=== PATIENT | female | born 1960 | race Caucasian/White ===

== ENCOUNTER → 2016-05-11 | Outpatient (CLI) | payer OTHER ==
[~2016-05-11] MED LIST: E-Z PAQUE 60% w/v SUSP 355ML BOTTLE As Ordered ONE; E-Z-GAS II EFFERVESCENT PACKET (SODIUM BICARB./CITRIC ACID/SIMETHICONE) As Ordered ONE; E-Z-HD 98% w/w 340GM SUSP BTL As Ordered ONE
--- NOTE | 2016-05-11 17:33 | REP ---
ESOPHAGRAM, AIR CONTRAST: The procedure was performed under the direct supervision of Dr. Quach. The images were reviewed with Dr. Quach. A single view PA chest x-ray is submitted as a budget director film. The superior mediastinal structures are midline. The heart size is within normal limits. The lungs are clear. Liquid barium and gas producing granules were given in the erect position as well as liquid barium in the prone oblique position in order to perform a double contrast esophagram examination. The oral and pharyngeal stages of deglutition are unremarkable. Esophageal transport is prompt and efficient and there is no esophagitis, stricture or mucosal ring. There is a sliding type hiatal hernia present. There is gastroesophageal reflux demonstrated to the level of the thoracic inlet. IMPRESSION: There is a sliding type hiatal hernia present. There is gastroesophageal reflux demonstrated to the level of the thoracic inlet. 45 seconds of fluoroscopy time was utilized for this procedure. Reviewed by CHASIDY Cristobal 05/12/2016 04:48 PEdited and Signed by Tristen Quach MD 05/12/2016 05:19 P
== END ==
LOC: M RAD 08:58
PROVIDERS: ATTEND Specialist
DX: K21.9 Gastro-esophageal reflux disease without esophagitis (principal); J04.0 Acute laryngitis

== ENCOUNTER 2016-10-26 12:05 | Outpatient (CLI) | payer OTHER ==
[~2016-10-26] VITALS: Ht 165.1 cm; Wt 112.9 kg
[~2016-10-26 12:05] MED LIST changes: -E-Z PAQUE 60% w/v SUSP 355ML BOTTLE As Ordered ONE; -E-Z-GAS II EFFERVESCENT PACKET (SODIUM BICARB./CITRIC ACID/SIMETHICONE) As Ordered ONE; -E-Z-HD 98% w/w 340GM SUSP BTL As Ordered ONE; +FLUC150T PO; +HUMI40KI2 SC; +OMEP40CA2 PO; +PENT500C PO
[2016-10-26] MEDS ORDERED: NS 1,000 ML IV ONE (12:30)
[2016-10-26] MEDS ORDERED: PROPOFOL 200 MG/20 ML VIAL As Ordered ONE ×2 (12:42→13:25)
[2016-10-26] MEDS ORDERED: LIDOCAINE 2% INJ 100 MG/5 ML SDV (FOR ANES.) As Ordered ONE (12:42)
--- NOTE | 2016-10-26 13:13 | ROOR ---
Patient Name: Miri Velasquez Procedure Date: 10/26/2016 12:57 PM Date of : 1960 Age: 56 Room: [facility] Gender: Female Note Status: Finalized Procedure: Upper Endoscopy + Biopsies Indications: Heartburn, Exclusion of Cee's esophagus Providers: Jefferson Barraza MD Referring MD: Simran Rosado MD Requesting Provider: Medicines: Monitored Anesthesia Care Complications: No immediate complications. Procedure: Pre-Anesthesia Assessment: - The heart rate, respiratory rate, oxygen saturations, blood pressure, adequacy of pulmonary ventilation, and response to care were monitored throughout the procedure. The Endoscope was introduced through the mouth, and advanced to the second part of duodenum. The upper GI endoscopy was accomplished without difficulty. The patient tolerated the procedure well. Findings: The Z-line was regular and was found 35 cm from the incisors. A small hiatal hernia was present. Biopsies were taken with a cold forceps for histology. No other significant abnormalities were identified in a careful examination of the stomach. The exam of the duodenum was otherwise normal. Impression: - Z-line regular, 35 cm from the incisors. - Small hiatal hernia. Biopsied. - The examination was otherwise normal. Recommendation: - Await pathology results. - Discharge patient to home. - Follow an antireflux regimen. - Continue present medications. - Await pathology results. - Telephone GI clinic for pathology results in 1 week. - Return to referring physician. - The findings and recommendations were discussed with the patient's family. Jefferson Barraza MD Jefferson Barraza MD 10/26/2016 1:13:25 PM This report has been signed electronically. Number of Addenda: 0 Note Initiated On: 10/26/2016 12:57 PM Estimated Blood Loss: Estimated blood loss: none.
--- NOTE | 2016-10-26 13:33 | ROOR ---
Patient Name: Miri Velasquez Procedure Date: 10/26/2016 12:58 PM Date of : 1960 Age: 56 Room: [facility] Gender: Female Note Status: Finalized Procedure: Total Colonoscopy to Cecum Indications: Follow-up of Crohn's disease of the small bowel Providers: Jefferson Barraza MD Referring MD: Simran Rosado MD Requesting Provider: Medicines: Monitored Anesthesia Care Complications: No immediate complications. Procedure: Pre-Anesthesia Assessment: - The heart rate, respiratory rate, oxygen saturations, blood pressure, adequacy of pulmonary ventilation, and response to care were monitored throughout the procedure. The Colonoscope was introduced through the anus and advanced to the cecum, identified by appendiceal orifice and ileocecal valve. The colonoscopy was performed without difficulty. The patient tolerated the procedure well. The quality of the bowel preparation was excellent. Findings: The perianal and digital rectal examinations were normal. Non-bleeding internal hemorrhoids were found during retroflexion. The hemorrhoids were small and Grade I (internal hemorrhoids that do not prolapse). No other significant abnormalities were identified in a careful examination of the remainder of the colon. The exam was otherwise without abnormality on direct and retroflexion views. Impression: - Non-bleeding internal hemorrhoids. - The examination was otherwise normal on direct and retroflexion views. - No specimens collected. - The exam was otherwise normal to the cecum. Recommendation: - Patient has a contact number available for emergencies. The signs and symptoms of potential delayed complications were discussed with the patient. Return to normal activities tomorrow. Written discharge instructions were provided to the patient. - High fiber diet. - Discharge patient to home. - Continue present medications. - Repeat colonoscopy in 10 years for screening purposes. - Return to referring physician. - The findings and recommendations were discussed with the patient's family. Jefferson Barraza MD Jefferson Barraza MD 10/26/2016 1:32:34 PM This report has been signed electronically. Number of Addenda: 0 Note Initiated On: 10/26/2016 12:58 PM Estimated Blood Loss: Estimated blood loss: none.
[2016-10-26 14:00] VITALS: BP 123/63
== END 2016-10-26 14:09 | disposition home or self-care (01) ==
LOC: M OPP 12:05
PROVIDERS: ATTEND Internal Medicine Gastroenterology
DX: K50.00 Crohn's disease of small intestine without complications (principal); K64.0 First degree hemorrhoids; Z88.0 Allergy status to penicillin; R12 Heartburn; K29.70 Gastritis, unspecified, without bleeding; K44.9 Diaphragmatic hernia without obstruction or gangrene; F41.9 Anxiety disorder, unspecified; Z87.891 Personal history of nicotine dependence; Z79.899 Other long term (current) drug therapy

== ENCOUNTER → 2019-08-06 | Outpatient (CLI) | payer OTHER ==
[~2019-08-06] MED LIST changes: -OMEP40CA2 PO; +OMEP40CA97 PO
[2019-08-06 16:36] LABS: BASO # 0.1 10^3/uL (0.0-0.2); BASO % 0.8 % (0.0-1.0); EOS # 0.4 10^3/uL (0.0-0.5); EOS % 3.8 % (0.0-3.0); HEMATOCRIT 38.8 % (36.0-47.0); HEMOGLOBIN 12.3 g/dl (12.0-15.5); LYMPH # 2.1 10^3/uL (1.5-5.0); LYMPH % 18.2 % (24.0-44.0); MEAN CORPUSCULAR HEMOGLOBIN 28.7 pg (27.0-33.0); MEAN CORPUSCULAR HGB CONC 31.7 g/dl (32.0-36.5); MEAN CORPUSCULAR VOLUME 90.4 fl (80.0-96.0); MONO # 0.9 10^3/uL (0.0-0.8); MONO % 7.6 % (0.0-5.0); NEUTROPHILS # 7.9 10^3/uL (1.5-8.5); NEUTROPHILS % 69.2 % (36.0-66.0); PLATELET COUNT, AUTOMATED 458 10^3/uL (150-450); RED BLOOD COUNT 4.29 10^6/uL (4.00-5.40); WHITE BLOOD COUNT 11.3 10^3/uL (4.0-10.0)
[2019-08-06 16:58] LABS: ALBUMIN 2.7 GM/DL (3.2-5.2); ALT/SGPT 18 U/L (12-78); BILIRUBIN,DIRECT 0.1 MG/DL (0.0-0.2); BILIRUBIN,TOTAL 0.3 MG/DL (0.2-1.0); BLOOD UREA NITROGEN 11 MG/DL (7-18); C REACTIVE PROTEIN QUANTITATIV 6.95 MG/DL (0.00-0.30); CREATININE FOR GFR 1.32 MG/DL (0.55-1.30); GLOMERULAR FILTRATION RATE 44.2 (>51); TOTAL PROTEIN 7.9 GM/DL (6.4-8.2)
[2019-08-06 17:24] LABS: ERYTHROCYTE SEDIMENTATION RATE 69 mm/hr (0-30)
[2019-08-07 09:00] LABS: HEPATITIS B SURFACE ANTIBODY NEGATIVE (POSITIVE)
[2019-08-07 09:10] LABS: HEPATITIS B SURFACE ANTIGEN NEGATIVE (NEGATIVE)
[2019-08-07 09:39] LABS: HEPATITIS C VIRUS ABY INDEX 0.6 INDEX (<0.8)
== END ==
LOC: M LAB 15:57
PROVIDERS: ATTEND Internal Medicine Gastroenterology
DX: K50.00 Crohn's disease of small intestine without complications (principal)

== ENCOUNTER 2019-09-12 08:39 | Outpatient (CLI) | payer OTHER ==
[~2019-09-12] VITALS: Ht 165.1 cm; Wt 90.0 kg
[2019-09-12 08:50] VITALS: BP 140/71
[2019-09-12] MEDS ORDERED: VEDOLIZUMAB 300 MG in NS 250 ML IV ONE (09:30)
[2019-09-12 10:30] VITALS: BP 144/81
[2019-09-30] MEDS ORDERED: POTA20TA6 PO (14:57)
== END 2019-09-12 10:30 | disposition home or self-care (01) ==
LOC: M INFU 08:39
PROVIDERS: ATTEND Internal Medicine Gastroenterology
DX: K50.90 Crohn's disease, unspecified, without complications (principal); Z88.0 Allergy status to penicillin
CPT/HCPCS: 96365; J3380

== ENCOUNTER 2019-09-26 10:32 | Outpatient (CLI) | payer OTHER ==
[~2019-09-26] VITALS: Ht 165.1 cm; Wt 90.0 kg
[2019-09-26] MEDS ORDERED: VEDOLIZUMAB 300 MG in NS 250 ML IV ONE (10:45)
[2019-09-26 10:58] VITALS: BP 128/69
[2019-09-26 12:00] VITALS: BP 126/75
[2019-09-26] MEDS ORDERED: CIPR-249 PO (13:38)
[2019-09-26] MEDS ORDERED: FLAG500T PO (13:38)
[2019-09-30] MEDS ORDERED: POTA20TA6 PO (14:57)
[2020-01-10] MEDS ORDERED: ENTY1INJ IV (15:04)
[2020-01-10] MEDS ORDERED: VENL37.598 PO (15:04)
== END 2019-09-26 12:00 | disposition home or self-care (01) ==
LOC: M INFU 10:32
PROVIDERS: ATTEND Internal Medicine Gastroenterology
DX: K50.90 Crohn's disease, unspecified, without complications (principal)
CPT/HCPCS: 96365; J3380

== ENCOUNTER 2019-11-07 08:58 | Outpatient (CLI) | payer OTHER ==
[~2019-11-07] VITALS: Ht 160 cm; Wt 89.8 kg
[~2019-11-07 08:58] MED LIST changes: +CIPR-249 PO; +FLAG500T PO; +POTA20TA6 PO
[2019-11-07] MEDS ORDERED: VEDOLIZUMAB 300 MG in NS 250 ML IV ONE (09:00)
[2019-11-07 09:11] VITALS: BP 135/70
[2019-11-07 10:10] VITALS: BP 136/74
[2020-01-10] MEDS ORDERED: ENTY1INJ IV (15:04)
[2020-01-10] MEDS ORDERED: VENL37.598 PO (15:04)
== END 2019-11-07 10:15 | disposition home or self-care (01) ==
LOC: M INFU 08:58
PROVIDERS: ATTEND Internal Medicine Gastroenterology
DX: K50.90 Crohn's disease, unspecified, without complications (principal)
CPT/HCPCS: 96365; J3380

== ENCOUNTER 2020-01-09 16:31 | Outpatient (CLI) | payer OTHER ==
[~2020-01-09] VITALS: Ht 160 cm; Wt 89.8 kg
[~2020-01-09 16:31] MED LIST changes: +ACETAMINOPHEN TAB 650MG DOSE (2X325MG) PO ONE; +VEDOLIZUMAB 300 MG in NS 250 ML IV ONE; +diphenhydrAMINE 25MG CAP PO ONE
[2020-01-09 16:42] VITALS: BP 173/74
[2020-01-09 18:00] VITALS: BP 138/83
[2020-01-10] MEDS ORDERED: VENL37.598 PO (15:04)
[2020-01-10] MEDS ORDERED: ENTY1INJ IV (15:04)
== END 2020-01-09 18:00 | disposition home or self-care (01) ==
LOC: M INFU 16:31
PROVIDERS: ATTEND Internal Medicine Gastroenterology
DX: K50.90 Crohn's disease, unspecified, without complications (principal)
CPT/HCPCS: 96365; J3380

== ENCOUNTER → 2020-01-12 | Outpatient (CLI) | payer OTHER ==
[~2020-01-12] MED LIST changes: -ACETAMINOPHEN TAB 650MG DOSE (2X325MG) PO ONE; +ENTY1INJ IV; -VEDOLIZUMAB 300 MG in NS 250 ML IV ONE; +VENL37.598 PO; -diphenhydrAMINE 25MG CAP PO ONE
== END ==
LOC: M LABSMTC 11:04
PROVIDERS: ATTEND Anesthesiology
DX: Z01.812 Encounter for preprocedural laboratory examination (principal); Z20.828 Contact with and (suspected) exposure to other viral communicable diseases
CPT/HCPCS: C9803; U0003

== ENCOUNTER 2020-01-17 10:38 | Day surgery (SDC) | payer OTHER ==
[~2020-01-17] VITALS: Ht 165.1 cm; Wt 79.8 kg
[~2020-01-17 10:38] MED LIST changes: +NS 1,000 ML IV ONE
[2020-01-17] MEDS ORDERED: LIDOCAINE 2% 100MG/5ML SDV (FOR ANES.) As Ordered ONE (13:01)
--- NOTE | 2020-01-17 13:01 | ROOR ---
Patient Name: Miri Velasquez Procedure Date: 01/17/2020 12:17 PM Date of : 1960 Age: 59 Room: [facility] Gender: Female Note Status: Finalized Procedure: Upper GI endoscopy Indications: Abnormal MRI of the GI tract Providers: Enrico Astorga MD Referring MD: DIEUDONNE ARAIZA MD Requesting Provider: Medicines: Monitored Anesthesia Care Complications: No immediate complications. Procedure: Pre-Anesthesia Assessment: - Prior to the procedure, a History and Physical was performed, and patient medications and allergies were reviewed. The patient is competent. The risks and benefits of the procedure and the sedation options and risks were discussed with the patient. All questions were answered and informed consent was obtained. Patient identification and proposed procedure were verified by the physician, the nurse and the anesthesiologist in the procedure room. Mental Status Examination: alert and oriented. Airway Examination: normal oropharyngeal airway and neck mobility. Respiratory Examination: clear to auscultation. CV Examination: normal. Prophylactic Antibiotics: The patient does not require prophylactic antibiotics. Prior Anticoagulants: The patient has taken no previous anticoagulant or antiplatelet agents. ASA Grade Assessment: III - A patient with severe systemic disease. After reviewing the risks and benefits, the patient was deemed in satisfactory condition to undergo the procedure. The anesthesia plan was to use monitored anesthesia care (MAC). Immediately prior to administration of medications, the patient was re-assessed for adequacy to receive sedatives. The heart rate, respiratory rate, oxygen saturations, blood pressure, adequacy of pulmonary ventilation, and response to care were monitored throughout the procedure. The physical status of the patient was re-assessed after the procedure. The Endoscope was introduced through the mouth, and advanced to the second part of duodenum. The upper GI endoscopy was accomplished without difficulty. The patient tolerated the procedure well. Findings: The examined esophagus was normal. Scattered moderate inflammation characterized by erythema and granularity was found in the gastric antrum. Biopsies were taken with a cold forceps for Helicobacter pylori testing. Verification of patient identification for the specimen was done by the physician and nurse using the patient's name, date and medical record number. Estimated blood loss was minimal. The duodenal bulb, second portion of the duodenum and third portion of the duodenum were normal. Biopsies for histology were taken with a cold forceps for evaluation of celiac disease. Impression: - Normal esophagus. - Gastritis. Biopsied. - Normal duodenal bulb, second portion of the duodenum and third portion of the duodenum. Biopsied. Recommendation: - Patient has a contact number available for emergencies. The signs and symptoms of potential delayed complications were discussed with the patient. Return to normal activities tomorrow. Written discharge instructions were provided to the patient. - High fiber diet. - Continue present medications. - Await pathology results. - Return to GI clinic in [facility] (address [address], [address] [address]) in 4 -- 6 weeks. Please call GI clinic @ [phone] for apppointment date and time. - Return to primary care physician. Enrico Astorga MD Enrico Astorga MD 01/17/2020 1:01:18 PM Electronically signed by Enrico Astorga MD Number of Addenda: 0 Note Initiated On: 01/17/2020 12:17 PM Estimated Blood Loss: Estimated blood loss was minimal.
[2020-01-17] MEDS ORDERED: propofoL 200 MG/20 ML VIAL As Ordered ONE (13:02)
--- NOTE | 2020-01-17 13:17 | ROOR ---
Patient Name: Miri Velasquez Procedure Date: 01/17/2020 12:17 PM Date of : 1960 Age: 59 Room: [facility] Gender: Female Note Status: Finalized Procedure: Colonoscopy Indications: Disease activity assessment of Crohn's disease of the small bowel and colon, Assess therapeutic response to therapy of Crohn's disease of the small bowel and colon Providers: Enrico Astorga MD Referring MD: DIEUDONNE ARAIZA MD Requesting Provider: Medicines: Monitored Anesthesia Care Complications: No immediate complications. Procedure: Pre-Anesthesia Assessment: - Prior to the procedure, a History and Physical was performed, and patient medications and allergies were reviewed. The patient is competent. The risks and benefits of the procedure and the sedation options and risks were discussed with the patient. All questions were answered and informed consent was obtained. Patient identification and proposed procedure were verified by the physician, the nurse and the anesthesiologist in the procedure room. Mental Status Examination: alert and oriented. Airway Examination: normal oropharyngeal airway and neck mobility. Respiratory Examination: clear to auscultation. CV Examination: normal. Prophylactic Antibiotics: The patient does not require prophylactic antibiotics. Prior Anticoagulants: The patient has taken no previous anticoagulant or antiplatelet agents. ASA Grade Assessment: III - A patient with severe systemic disease. After reviewing the risks and benefits, the patient was deemed in satisfactory condition to undergo the procedure. The anesthesia plan was to use monitored anesthesia care (MAC). Immediately prior to administration of medications, the patient was re-assessed for adequacy to receive sedatives. The heart rate, respiratory rate, oxygen saturations, blood pressure, adequacy of pulmonary ventilation, and response to care were monitored throughout the procedure. The physical status of the patient was re-assessed after the procedure. The Colonoscope was introduced through the anus and advanced to the terminal ileum, with identification of the appendiceal orifice and IC valve. The colonoscopy was performed without difficulty. The patient tolerated the procedure well. The quality of the bowel preparation was good. The terminal ileum, ileocecal valve, appendiceal orifice, and rectum were photographed. Scope insertion time was 3 minutes. Scope withdrawal time was 9 minutes. The total duration of the procedure was 14 minutes. Findings: The perianal and digital rectal examinations were normal. The terminal ileum contained a benign-appearing, intrinsic moderate stenosis measuring 1 cm (inner diameter) that was traversed. Biopsies were taken with a cold forceps for histology. Verification of patient identification for the specimen was done by the physician and nurse using the patient's name, date and medical record number. Estimated blood loss was minimal. The terminal ileum contained a single (solitary) ten mm ulcer. No bleeding was present. No stigmata of recent bleeding were seen. Biopsies were taken with a cold forceps for histology. A 8 mm polyp was found in the sigmoid colon. The polyp was sessile. The polyp was removed with a cold biopsy forceps. Resection and retrieval were complete. Scattered moderate inflammation characterized by erythema, friability and granularity was found in the ascending colon and at the ileocecal valve. Biopsies for histology were taken with a cold forceps from the ascending colon, transverse colon, descending colon and rectosigmoid colon for evaluation of microscopic colitis. Non-bleeding external and internal hemorrhoids were found during retroflexion. The hemorrhoids were medium-sized. Impression: - Stricture in the terminal ileum. Biopsied. - A single (solitary) ulcer in the terminal ileum. Biopsied. - One 8 mm polyp in the sigmoid colon, removed with a cold biopsy forceps. Resected and retrieved. - Scattered moderate inflammation was found in the ascending colon and at the ileocecal valve secondary to Crohn's disease. Biopsied. - Non-bleeding external and internal hemorrhoids. Recommendation: - Patient has a contact number available for emergencies. The signs and symptoms of potential delayed complications were discussed with the patient. Return to normal activities tomorrow. Written discharge instructions were provided to the patient. - High fiber diet. - Continue present medications. - Use Entocort EC (budesonide) (Tapering course) 9mg dose daily for 4 weeks, then 6mg dose for 4 weeks and then 3 mg dose for last 4 weeks. Take tablets together PO one time per day . - Await pathology results. - Repeat colonoscopy in 1 year to assess disease activity and to evaluate the response to therapy. - Return to GI clinic in [facility] (address [address], [address], [place], [facility] [place][note 2]) in 4 -- 6 weeks. Please call GI clinic @ [phone] for apppointment date and time. - Return to primary care physician. Enrico Astorga MD Enrico Astorga MD 01/17/2020 1:16:36 PM Electronically signed by Enrico Astorga MD Number of Addenda: 0 Note Initiated On: 01/17/2020 12:17 PM Estimated Blood Loss: Estimated blood loss was minimal.
[2020-01-17 13:30] VITALS: BP 164/78
[2020-01-17] MEDS ORDERED: SIMETHICONE 40MG/0.6ML DROPS 30ML As Ordered ONE (15:23)
== END 2020-01-17 14:05 | disposition home or self-care (01) ==
LOC: M OPP 10:38
PROVIDERS: ATTEND Internal Medicine Gastroenterology
DX: K50.812 Crohn's disease of both small and large intestine with intestinal obstruction (principal); Z09 Encounter for follow-up examination after completed treatment for conditions other than malignant neoplasm; K63.3 Ulcer of intestine; D12.5 Benign neoplasm of sigmoid colon; K21.9 Gastro-esophageal reflux disease without esophagitis; K29.70 Gastritis, unspecified, without bleeding; R93.3 Abnormal findings on diagnostic imaging of other parts of digestive tract; Z79.899 Other long term (current) drug therapy; Z88.0 Allergy status to penicillin

== ENCOUNTER 2020-03-04 08:25 | Outpatient (CLI) | payer OTHER ==
[~2020-03-04] VITALS: Ht 160 cm; Wt 89.8 kg
[~2020-03-04 08:25] MED LIST changes: +IRON65TA2 PO; -NS 1,000 ML IV ONE; +VITA1CHW12 PO
[2020-03-04 08:30] VITALS: BP 147/75
[2020-03-04] MEDS ORDERED: VEDOLIZUMAB 300 MG in NS 250 ML IV ONE (08:30)
[2020-03-04 08:50] VITALS: BP 147/75
[2020-03-04 09:25] VITALS: BP 135/75
[2020-03-04 09:31] VITALS: BP 135/75
== END 2020-03-04 09:35 | disposition home or self-care (01) ==
LOC: M INFU 08:25
PROVIDERS: ATTEND Internal Medicine Gastroenterology
DX: K50.90 Crohn's disease, unspecified, without complications (principal); Z88.0 Allergy status to penicillin
CPT/HCPCS: 96365; J3380

== ENCOUNTER 2020-04-29 15:57 | Outpatient (CLI) | payer OTHER ==
[~2020-04-29] VITALS: Ht 160 cm; Wt 90.4 kg
[2020-04-29] MEDS ORDERED: VEDOLIZUMAB 300 MG in NS 250 ML IV ONE (16:00)
[2020-04-29 16:14] VITALS: BP 139/70
[2020-04-29 17:19] VITALS: BP 126/68
== END 2020-04-29 17:20 | disposition home or self-care (01) ==
LOC: M INFU 15:57
PROVIDERS: ATTEND Internal Medicine Gastroenterology
DX: K50.90 Crohn's disease, unspecified, without complications (principal); Z88.0 Allergy status to penicillin
CPT/HCPCS: 96365; J3380

== ENCOUNTER → 2020-06-04 | Outpatient (CLI) | payer OTHER ==
[~2020-06-04] MED LIST changes: +FERR325T18 PO; +KLOR20TA42 PO; +MAGN400T3 PO
== END ==
LOC: M LABSMTC 10:56
PROVIDERS: ATTEND Anesthesiology
DX: Z01.812 Encounter for preprocedural laboratory examination (principal); Z20.822 Contact with and (suspected) exposure to COVID-19

== ENCOUNTER 2020-06-09 06:17 | Inpatient (IN) | payer OTHER ==
--- NOTE | 2020-06-08 21:48 | HPE ---
HISTORY AND PHYSICAL DATE OF ADMISSION: 06/09/2020 ADMITTING DIAGNOSIS: Crohn's disease with terminal ileal stricture with obstruction. HISTORY OF PRESENT ILLNESS: The patient is a 59-year-old woman who reports a roughly 5 to 6 year history of treatment for Crohn's disease. She has recently been started on Entyvio for management. She has had a significant weight loss over the year or year and a half. She describes that after eating she will have severe cramping abdominal pains often leading to nausea and vomiting. She has reduced her oral intake to very soft foods like oatmeal and applesauce. She describes onset of severe abdominal pressure and discomfort within about 15 minutes after eating. She had an esophagogastroduodenoscopy and colonoscopy by Rizwan on January 17, 2020. He identified some mild inflammatory changes in the ascending colon. There was a stricture noted in the terminal ileum. A CT scan of the abdomen and pelvis had been performed at [facility] in September of 2019. Unfortunately, the CT was only of the abdomen, but it did show a markedly dilated distal ileum suggestive of a prestenotic dilatation. A small bowel follow through study was done also at [facility] on April 23, 2020. The small bowel study also showed a quite dilated distal segment of small bowel in the pelvis, but definitely flow into the large bowel was not seen on the images provided. Her history and imaging is consistent with a terminal ileal stricture with obstruction leading to nausea and vomiting and severe pain. The patient is now admitted to undergo a robotic assisted laparoscopic small bowel resection with anastomosis. ALLERGIES: The patient reports an allergy to Penicillin. CURRENT MEDICATIONS: INCLUDE: Omeprazole 40 mg daily, potassium chloride 20 mEq one tablet twice daily, magnesium oxide 400 mg twice daily, ferrous sulfate 325 mg daily and Entyvio 300 mg IV every 8 weeks. She was started on Flagyl and neomycin on the for an antibiotic bowel preparation and Suprep for a bowel prep. MEDICAL HISTORY: Significant for her Crohn's disease. She has a history of some gastroesophageal reflux as well. SURGICAL HISTORY: The patient had undergone esophagogastroduodenoscopy (EGD) and colonoscopy back in 2017 and then again in 2019. She has had a previous hernia repair and has had a hysterectomy with bilateral salpingo-oophorectomy and appendectomy. SOCIAL HISTORY: The patient denies tobacco use or alcohol intake. FAMILY HISTORY: Father had a diagnosis of chronic obstructive pulmonary disease (COPD) and the mother was due to heart disease. REVIEW OF SYSTEMS: The patient reports weight loss over the last year to year and a half of 80 pounds or so. She denies any history of seizure or stroke or chronic severe headaches. She has no chest pain or palpitations. She denies any cough, wheezing or sputum production. She has been having some diarrhea, but denies any rectal bleeding. She has nausea and vomiting, particularly after meals. She denies any dysuria, hematuria or frequency. She is having no significant new bone or joint problems. There is no history of deep venous thrombosis (DVT) or pulmonary embolus. PHYSICAL EXAMINATION: Most recent visit in the office revealed a blood pressure of 128/70 with a height of 65 inches and a weight of 74 kg giving her a body mass index (BMI) of approximately 27. She is awake, alert, oriented. Skin is warm and dry. Sclerae are anicteric. Mucous membranes are moist. The neck is supple without mass and she has no cervical bruit. Heart examination shows a regular rate and rhythm. The lungs are clear to auscultation bilaterally. The abdomen is flat and soft with bowel sounds present. The abdomen is soft throughout without appreciable mass. Extremities are without edema. She has palpable pedal and radial pulses. LABORATORY: Studies from April 16, 2020 showed a white count of 11, hemoglobin 10, hematocrit 31 and a platelet count of 403,000. The differential count showed 74% neutrophils and 13% lymphocytes with 9% monocytes. A chemistry profile showed normal liver function tests with total protein of 6.2 and an albumin of 3.0. Her electrolytes were normal with a BUN of 14, creatinine 1.1 and a glucose of 84. IMPRESSION: The patient has a terminal ileal stricture secondary to Crohn's disease with obstruction. She has had a significant weight loss with sever cramping and often nausea and vomiting following any solid food. She is now being admitted for a robotic assisted laparoscopic terminal ileal resection with anastomosis. Additional diagnosis include gastroesophageal reflux. PLAN: The patient was started on neomycin and Flagyl for preoperative antibiotics on the . She was to use a Suprep prep kit for bowel cleansing for her mechanical bowel prep. She will present on the morning of the for surgery. In the office, she was counseled for the procedure. The procedure was described in detail. She was counseled regarding the risk of the procedure, which are not limited to, but include bleeding, infection, scaring, adverse drug reaction and need for further surgery, injury of internal organ, anastomotic leak, recurrence of Crohn's disease and hernia. She had an opportunity to ask questions and desires to proceed.
[~2020-06-09] VITALS: Ht 165.1 cm; Wt 73.4 kg
[2020-06-09] VITALS (9 sets, daily range): BP systolic 110–126; BP diastolic 64–85; O2SAT 100
[~2020-06-09 06:17] MED LIST changes: +AZTREONAM 2 GM in D5W MINI-BAG PLUS 50 ML IV ONE; +LIDOCAINE 1% MDV 20ML VIAL SQ PRN; +LR 1,000 ML IV ONE
[2020-06-09] MEDS ORDERED: LACRILUBE (AKWA TEARS) OPHTH OINT 3.5 GM As Ordered ONE (07:10)
[2020-06-09] MEDS ORDERED: propofoL 200 MG/20 ML VIAL As Ordered ONE (07:12)
[2020-06-09] MEDS ORDERED: ROCURONIUM BROMIDE 50 MG/5 ML VIAL As Ordered ONE ×2 (07:12→08:51)
[2020-06-09] MEDS ORDERED: BUPIVACAINE HCL 0.25% 30ML VIAL As Ordered ONE (07:12)
[2020-06-09] MEDS ORDERED: LIDOCAINE 2% 100MG/5ML SDV (FOR ANES.) As Ordered ONE ×3 (07:12→14:20)
[2020-06-09] MEDS ORDERED: fentaNYL 100 MCG/2 ML INJECTION (J3010) As Ordered ONE ×2 (07:13→08:25)
[2020-06-09] MEDS ORDERED: dexameTHASONE 4 MG/ML 1ML VIAL (J1100 PER 1MG) As Ordered ONE (07:13)
[2020-06-09] MEDS ORDERED: MIDAZOLAM INJ 2MG/2ML VIAL (J2250 PER 1MG) As Ordered ONE (07:13)
[2020-06-09 07:37] LABS: HEMATOCRIT 32.1 % (36.0-47.0); MEAN CORPUSCULAR HGB CONC 31.2 g/dl (32.0-36.5); MEAN CORPUSCULAR VOLUME 99.4 fl (80.0-96.0); PLATELET COUNT, AUTOMATED 421 10^3/uL (150-450); RED BLOOD COUNT 3.23 10^6/uL (4.00-5.40); WHITE BLOOD COUNT 7.6 10^3/uL (4.0-10.0)
[2020-06-09] MEDS ORDERED: ACETAMINOPHEN 1000MG 100ML IV BTL (OFIRMEV) (J0131 PER 10MG) As Ordered ONE (09:18)
[2020-06-09] MEDS ORDERED: ONDANSETRON 4MG/2ML VIAL As Ordered ONE (09:18)
[2020-06-09] MEDS ORDERED: oxyCODONE 5MG TAB PO PRN (13:30)
[2020-06-09] MEDS ORDERED: fentaNYL 100 MCG/2 ML INJECTION (J3010) IV PRN (13:30)
[2020-06-09] MEDS ORDERED: ONDANSETRON 4MG/2ML VIAL IV PRN ×2 (13:30→14:00)
[2020-06-09] MEDS ORDERED: LR 1,000 ML IV SCH ×2 (13:30→13:59)
[2020-06-09] MEDS ORDERED: MORPHINE 2 MG/ML 1ML VIAL (J2270) IV PRN (14:00)
[2020-06-09] MEDS ORDERED: KETOROLAC 30 MG/ML 1ML VIAL IV PRN (14:00)
[2020-06-09] MEDS ORDERED: ACETAMINOPHEN TAB 650MG DOSE (2X325MG) PO PRN (14:00)
[2020-06-09] MEDS ORDERED: KETOROLAC 60MG 2ML VIAL As Ordered ONE (19:27)
[2020-06-09] MEDS ORDERED: SUGAMMADEX SODIUM 500 MG/5 ML VIAL (BRIDION) As Ordered ONE (19:27)
[2020-06-09] MEDS: OMEPRAZOLE 20 MG CAP PO SCH (20:11)
[2020-06-10] VITALS (7 sets, daily range): BP systolic 102–140; BP diastolic 53–88; O2SAT 96–100
[2020-06-10 08:23] LABS: BASO % 0.2 % (0.0-1.0); EOS % 0.3 % (0.0-3.0); HEMATOCRIT 29.1 % (36.0-47.0); HEMOGLOBIN 9.1 g/dl (12.0-15.5); LYMPH # 1.9 10^3/uL (1.5-5.0); LYMPH % 13.3 % (24.0-44.0); MEAN CORPUSCULAR HEMOGLOBIN 31.6 pg (27.0-33.0); MEAN CORPUSCULAR HGB CONC 31.3 g/dl (32.0-36.5); MONO # 1.3 10^3/uL (0.0-0.8); MONO % 9.1 % (2.0-8.0); NEUTROPHILS # 11.1 10^3/uL (1.5-8.5); NEUTROPHILS % 76.4 % (36.0-66.0); PLATELET COUNT, AUTOMATED 370 10^3/uL (150-450); RED BLOOD COUNT 2.88 10^6/uL (4.00-5.40); WHITE BLOOD COUNT 14.6 10^3/uL (4.0-10.0)
[2020-06-10 08:46] LABS: CREATININE FOR GFR 1.2 MG/DL (0.55-1.30); GLOMERULAR FILTRATION RATE 49.1 (>51); POTASSIUM SERUM 3.3 MEQ/L (3.5-5.1)
[2020-06-10] MEDS: OMEPRAZOLE 20 MG CAP PO SCH ×2 (08:52→20:13)
--- NOTE | 2020-06-10 09:21 | RO ---
OPERATIVE NOTE DATE OF OPERATION: 06/09/2020 PREOPERATIVE DIAGNOSIS: Crohn's disease of the terminal ileum with stricture and obstruction. POSTOPERATIVE DIAGNOSIS: Crohn's disease of the terminal ileum with stricture and obstruction. PROCEDURE PERFORMED: Robotic assisted laparoscopic resection of terminal ileum with ileocecal valve in cecum with ileocolonic anastomosis. SURGEON: Samy Rao MD [employer] SUPERVISOR: XANDER White. Evon's assistance was required for management of the da Jaycee XI robot with placement of trocars, change of instruments, passage of needles, operation of the suction nut processing supervisor and closure of the incisions. ANESTHESIA: General. INDICATIONS FOR THE PROCEDURE: The patient is a 59-year-old woman with a 5 to 6 year history of Crohn's disease. This has primarily affected her terminal ileum. She has developed a significant stricture which despite treatment has limited her ability to eat with significant abdominal pains after meals and a significant weight loss resulting. She is now for a robotic assisted laparoscopic resection of the strictured segment. OPERATIVE PROCEDURE: The patient was brought to the operating room and placed on the table in a supine position. She was placed under general endotracheal anesthesia. TEDs and sequentials were utilized. A Gonzalez catheter was inserted. The patient's abdomen was prepped and draped in a sterile fashion. 25% Marcaine was infiltrated at each of the trocar sites as needed. She was noted to have a prior incision around the umbilicus and there was a known piece of mesh present. I elected to place the first trocar high in the left upper quadrant. A small incision was made and the Veress needle was inserted. After positive hanging drop test, the abdomen was infiltrated with carbon dioxide gas. A 5 mm port was placed over the camera and advanced through the abdominal wall without difficulty. Initial examination showed some adhesions of the omentum to the anterior abdominal wall at the site of the prior hernia repair. Dilated loops of small bowel were noted in the lower mid abdomen. The liver was noted and the gallbladder was also seen and appeared un-inflamed. The locations for placement of the robotic trocars were marked on the abdominal wall. An 8 mm port was placed in the upper mid abdomen just to the left of the midline. A second port 12 mm in diameter was placed slightly lower in the left upper quadrant. Two 8 mm ports were placed in the left lower quadrant. Using hand-held scissors, the adhesions to the anterior abdominal wall were then divided. The da Jaycee XI patient cart was then brought into position. The endoscope arm was docked to the 12 mm port in the left upper quadrant. Targeting took place in the right lower quadrant. The 3 remaining arms were then docked. A SynchroSeal device was placed in the left upper quadrant and a fenestrated bipolar and grasping retractor were placed in the lower quadrant ports. I then moved to the control console to proceed with the operation. The transverse colon was identified in the right upper quadrant and appeared normal. Visualized loops of the small bowel in general were somewhat dilated, but otherwise normal and without evidence of Crohn's inflammation. The patient was tilted to a 15 degree head down position and rolled 10 degrees to the left. This exposed the markedly dilated distal ileum, as well as a segment of markedly thickened and inflamed appearing terminal ileum. This clearly had fat wrapping present. There were multiple filmy inflammatory adhesions between this segment of bowel and the sigmoid colon in the left lower quadrant and the superior rectum in the right side of the pelvis. These adhesions were freed by dissection with the SynchroSeal. She was found to have a U-shaped segment of markedly inflamed small bowel, perhaps 10 inches in length. This extended to the area of the ileocecal valve. There was some inflammation in the area at the cecum. Other than some thickening due to obstruction, the bowel just proximal to this area was normal in appearance and supple. I created an opening through the mesentery of the ileum just proximal to the grossly abnormal segment of bowel. The small bowel was then transected with 2 firings of a linear cutter 65 stapler with green load. These were placed perpendicular to the mesentery across the bowel. The mesentery was then dissected, working distally using the SynchroSeal device. The mesentery was dissected all the way to the cecum. Some of the lateral attachments of the cecum and proximal ascending colon were divided to free this area as well. An opening was created through the cecal mesentery, but the ileocolic vessels were preserved. The cecum was then transected likewise using the 60 mm robotic stapler with green load. This required also two loads of the stapler. The specimen was completed freed and was placed into the left upper quadrant just to place it away from the operative area. Blood loss was minimal during the dissection. Inspection identified two healthy ends of bowel. Three sutures of 2-0 Vicryl were placed to approximate the staple line. A 2-0 Vicryl suture was then placed tagging the ascending colon next to a tinea on the anterior wall and the antimesenteric wall of the ileum. This was placed approximately 6 to 8 cm from the staple lines. An opening was created in the colon and the terminal ileum using a cauterizing scissor. A 60 mm stapler load was then used to perform an anastomosis between the ileum and the colon. Inspection showed no evidence of any mucosal inflammation in the small bowel at the area of the anastomosis. The residual opening was then closed with a running 3-0 absorbable V-Loc suture to create a 2 layer closure. Final inspection revealed an excellent anastomosis. Inspection revealed no evidence of any bleeding in the operative area. The patient was returned to a flat position. I returned to the patient's side. The robotic instruments were removed and the robot was un-docked and withdrawn. The specimen was grasped through one of the ports. I elected to make a muscle splitting incision through the 12 mm port site in the left upper quadrant. An approximately 6 cm oblique incision was made continuing the 12 mm port site. This was deepened to the rectus sheath and the sheath was then opened longitudinally as a muscle splitting approach with opening of the anterior sheath, spreading of the muscle and opening of the posterior sheath. The small Mobius retractor was then inserted. The specimen was delivered through the wound. It was confirmed as an approximately 10 inch long segment of a loop of thickened small bowel with a small area of attached terminal ileum, which actually looked fairly normal and a portion of the cecum and ascending colon. This was sent for permanent pathology. The posterior rectus sheath was then closed with a running locking suture of #1 Vicryl. The muscles were approximated with several chromic sutures and the anterior sheath was closed with interrupted simple sutures of #1 Vicryl. The subcutaneous tissues were approximated after irrigating the wound using some chromic. Some 25% Marcaine was infiltrated along the incision and into the rectus sheath. The skin incisions were all closed with buried sutures of 4-0 Vicryl and Steri-Strips. The patient tolerated the procedure well without apparent complication. Her Gonzalez catheter was removed. She was awakened in the operating room and extubated and moved to the recovery room in stable condition.
[2020-06-10] MEDS: IBUPROFEN 400MG TAB PO PRN ×2 (09:35→15:57)
--- NOTE | 2020-06-10 12:47 | IPNPDOC ---
Text Note Date of Service The patient was seen on 06/10/20. NOTE General Surgery. Dr Rao. The patient is a 59-year-old female with history of Crohn's disease and terminal ileal stricture with obstruction status post robotic-assisted la paroscopic terminal ileal resection with anastomosis 06/09/[address] Rao. This morning, the patient is up out of bed. She is sitting in the chair, she has walked in the halls. He reports pain is controlled. She denies any nausea or vomiting. Tolerating clear liquids. Reports no flatus or bowel movement yet. Reports some belching. Afebrile. heart rate 102, respiratory rate 20, blood pressure 122/74, saturation 100% on room air. Gen. Sitting in chair, no acute distress. MMM Lungs clear to auscultation S1-S2 regular rate rhythm Abdomen. Soft, mild tenderness is noted around the surgical sites, mild distention, dressings are clean, dry and intact with no surrounding erythema, no drainage. Extremities no edema. 4100/350 +3750 White blood cell count 14.6, hemoglobin 9.1, platelets 370 Serum creatinine 1.20, GFR 49.1 Assessment/plan History of Crohn's disease and terminal ileal stricture with obstruction status post robotic-assisted laparoscopic terminal ileal resection with anastomosis 06/09/[address] Rao. IV fluids discontinued. Pain has been well controlled. Toradol D/Cd, Ibuprofen as needed. Continue out of bed and continue to encourage ambulation. The patient is advanced to regular diet. Continue to monitor. GERD. Continue PPI. VS,Fishbone, I+O VS, Fishbone, I+O Laboratory Tests 06/10/20 08:08 Vital Signs Date Time Temp Pulse Resp B/P (MAP) Pulse Ox O2 Delivery O2 Flow Rate FiO2 06/10/20 12:00 97.8 102 20 122/74 (90) 100 06/10/20 09:44 Room Air 06/10/20 08:00 3.0 I&O- Last 24 Hours up to 6 AM 06/10/20 06:00 Intake Total 4460 ml Output Total 750 ml Balance 3710 ml Attending Note Attending Note Pt doing very well POD #1. Little pain. No nausea or vomiting. No flatus yet. Abd: Soft with active BS. Dressings dry. Labs noted and fine. Imp: doing well Plan: Reg diet/ OOB/ anticipate return of bowel function soon. Oralia Hoover Jun 10, 2020 12:46 Samy Rao Jun 10, 2020 20:17
[2020-06-10] MEDS: NORCO, ANEXSIA 5/325MG TABLET (HYDROcodone/ACETAMINOPHEN) PO PRN (18:18)
[2020-06-11] MEDS: NORCO, ANEXSIA 5/325MG TABLET (HYDROcodone/ACETAMINOPHEN) PO PRN ×3 (04:04→17:14)
[2020-06-11 06:00] VITALS: BP 140/63
--- NOTE | 2020-06-11 08:51 | IPNPDOC ---
Text Note Date of Service The patient was seen on 06/11/20. NOTE General Surgery. Dr Rao. The patient is a 59-year-old female with history of Crohn's disease and terminal ileal stricture with obstruction status post robotic-assisted laparoscopic terminal ileal resection with anastomosis 06/09/[address] Rao. This morning, the patient is up out of bed, sitting in the chair. She states she has noticed some pain in the upper mid abdomen around her incision site. She denies any nausea or vomiting. Tolerating regular diet. Reports small amount flatus x 1, no bowel movement yet. Afebrile. VSS Gen. Sitting in chair, no acute distress. MMM Lungs clear to auscultation S1-S2 regular rate rhythm Abdomen. Soft, tenderness is noted around the upper abdomen surgical sites, mild distention, dressings are clean, dry and intact with no surrounding erythema, no drainage. Extremities no edema. no new labs Assessment/plan History of Crohn's disease and terminal ileal stricture with obstruction status post robotic-assisted laparoscopic terminal ileal resection with anastomosis 05/19 06/[address] Rao. Tolerating regular diet. Only small amount flatus x 1, no BM yet. reports some discomfort around upper abdominal incision sites today but appear to be C/D/I Continue out of bed and continue to encourage ambulation. Continue to monitor. GERD. Continue PPI. VS,Fishbone, I+O VS, Fishbone, I+O Vital Signs Date Time Temp Pulse Resp B/P (MAP) Pulse Ox O2 Delivery O2 Flow Rate FiO2 06/11/20 06:00 98.0 92 18 140/63 (88) 97 Room Air 06/10/20 14:00 3.0 I&O- Last 24 Hours up to 6 AM 06/11/20 06:00 Intake Total 2625 ml Output Total 250 ml Balance 2375 ml Attending Note Attending Note Agree with note by Oralia Hoover. Patient now POD #2 and doing well. I am a little surprised she has not had a return of bowel function. She is stable and her pain is at her largest incision primarily. Abdomen is otherwise benign. Will keep in hospital another day. Oralia Hoover Jun 11, 2020 08:51 Samy Rao Jun 12, 2020 12:25
[2020-06-11] MEDS: OMEPRAZOLE 20 MG CAP PO SCH ×2 (09:03→20:11)
[2020-06-11 10:00] VITALS: BP 120/68
[2020-06-11 14:00] VITALS: BP 117/70
[2020-06-11] MEDS: IBUPROFEN 400MG TAB PO PRN (15:07)
[2020-06-11 18:00] VITALS: BP 117/71
[2020-06-11 22:00] VITALS: BP_SYST 131; BP_DIAS 0; BP_DIAS 70; O2SAT 95
[2020-06-12] MEDS: NORCO, ANEXSIA 5/325MG TABLET (HYDROcodone/ACETAMINOPHEN) PO PRN ×4 (01:01→19:41)
[2020-06-12 06:00] VITALS: BP 132/74
[2020-06-12] MEDS: OMEPRAZOLE 20 MG CAP PO SCH ×2 (08:14→22:53)
[2020-06-12 09:55] LABS: BASO # 0.1 10^3/uL (0.0-0.2); BASO % 0.7 % (0.0-1.0); EOS # 0.5 10^3/uL (0.0-0.5); EOS % 5.1 % (0.0-3.0); HEMATOCRIT 31.1 % (36.0-47.0); HEMOGLOBIN 9.6 g/dl (12.0-15.5); LYMPH # 1.4 10^3/uL (1.5-5.0); LYMPH % 15.3 % (24.0-44.0); MEAN CORPUSCULAR HEMOGLOBIN 30.8 pg (27.0-33.0); MEAN CORPUSCULAR HGB CONC 30.9 g/dl (32.0-36.5); MEAN CORPUSCULAR VOLUME 99.7 fl (80.0-96.0); MONO # 0.9 10^3/uL (0.0-0.8); MONO % 9.8 % (2.0-8.0); NEUTROPHILS # 6.1 10^3/uL (1.5-8.5); NEUTROPHILS % 67.8 % (36.0-66.0); PLATELET COUNT, AUTOMATED 373 10^3/uL (150-450); RED BLOOD COUNT 3.12 10^6/uL (4.00-5.40); WHITE BLOOD COUNT 8.9 10^3/uL (4.0-10.0)
--- NOTE | 2020-06-12 10:06 | IPNPDOC ---
Text Note Date of Service The patient was seen on 06/12/20. NOTE General Surgery. Dr Rao. The patient is a 59-year-old female with history of Crohn's disease and terminal ileal stricture with obstruction status post robotic-assisted la paroscopic terminal ileal resection with anastomosis 06/09/[address] Rao. This morning, the patient is up out of bed, sitting in the chair, and eating breakfast. She still has some pain around her incision sites. She denies any nausea or vomiting. Tolerating regular diet. Reports small amount flatus x 1 with a small amount of liquid stool, but no bowel movement yet. She states she had an episode last night where she felt flushed, diaphoretic and noted palpitations. She states it was short-lived. It was after she had been up out of bed and walking around and had been to the bathroom. She sat down to rest and it resolved. Afebrile. VSS Gen. Sitting in chair, no acute distress. MMM Lungs clear to auscultation S1-S2 regular rate rhythm Abdomen. Soft, tenderness is noted around the upper abdomen surgical sites, mild distention, dressings are clean, dry and intact with no surrounding erythema, no drainage. Extremities no edema. Labs this a.m. pending. Assessment/plan History of Crohn's disease and terminal ileal stricture with obstruction status post robotic-assisted laparoscopic terminal ileal resection with anastomosis 06/09/[address] Rao. Tolerating regular diet. Only small amount flatus x 1 with small amount of liquid stool, otherwise no BM yet. Still reports some discomfort around upper abdominal incision sites, about the same, but appear to be C/D/I Continue out of bed and continue to encourage ambulation. The patient is reviewed and examined as per Dr. Rao this morning, will update the patient's labs this morning. Continue to monitor. GERD. Continue PPI. VS,Fishbone, I+O VS, Fishbone, I+O Laboratory Tests 06/12/20 09:28 Vital Signs Date Time Temp Pulse Resp B/P (MAP) Pulse Ox O2 Delivery O2 Flow Rate FiO2 06/12/20 08:59 18 06/12/20 06:00 97.6 80 132/74 (93) 97 06/12/20 01:31 Room Air 06/10/20 14:00 3.0 I&O- Last 24 Hours up to 6 AM 06/12/20 06:00 Intake Total 1770 ml Output Total 1300 ml Balance 470 ml Attending Note Attending Note POD #3. Agree with note by Oralia. Still awaiting return of bowel function. Only small amt flatus and small amount liquid stool. Abd benign Imp: Slow return of bowel function. Plan: will keep in another day. Oralia Hoover Jun 12, 2020 10:06 Samy Rao Jun 16, 2020 22:24
[2020-06-12 10:34] LABS: ALBUMIN 2.2 GM/DL (3.2-5.2); ALT/SGPT 12 U/L (12-78); BILIRUBIN,TOTAL 0.2 MG/DL (0.2-1.0); BLOOD UREA NITROGEN 7 MG/DL (7-18); CARBON DIOXIDE LEVEL 28 MEQ/L (21-32); CHLORIDE LEVEL 110 MEQ/L (98-107); CREATININE FOR GFR 0.92 MG/DL (0.55-1.30); GLOMERULAR FILTRATION RATE > 60.0 (>51); GLUCOSE, FASTING 76 MG/DL (70-100); POTASSIUM SERUM 3.2 MEQ/L (3.5-5.1); SODIUM LEVEL 144 MEQ/L (136-145); TOTAL PROTEIN 6.2 GM/DL (6.4-8.2)
[2020-06-12 14:00] VITALS: BP 130/72
[2020-06-12] MEDS: POTASSIUM CHLORIDE 10 MEQ SR TABLET PO SCH ×3 (14:03→22:54)
[2020-06-12 22:00] VITALS: BP 122/71
[2020-06-13] MEDS: NORCO, ANEXSIA 5/325MG TABLET (HYDROcodone/ACETAMINOPHEN) PO PRN ×2 (05:03→11:06)
[2020-06-13 06:00] VITALS: BP 130/74
[2020-06-13] MEDS: OMEPRAZOLE 20 MG CAP PO SCH (08:37)
[2020-06-13 10:00] VITALS: BP 129/64
[2020-06-13] MEDS ORDERED: HYDR-3715 PO (11:14)
--- NOTE | 2020-06-13 14:14 | IPN ---
PROGRESS NOTE DATE: 06/13/2020 HISTORY: Patient is postoperative day #4 from a distal ileal resection for a significant stricture from Crohn's disease. We have been awaiting better evidence of return of bowel function. She did have three bowel movements yesterday with the last two being moderate amount of loose stool. Today she feels pretty good. She has not had a bowel movement today but has been eating well and has no nausea or vomiting. Vital signs show that she has been afebrile over the past 24 hours. Her pulse is in the range of 80-100. Blood pressure is normal, and her room air oxygen saturation is normal. Intake and output show that yesterday she had 1800 in with 1100 recorded out. PHYSICAL EXAMINATION: Patient is sitting up in her bed looking quite comfortable. Skin is warm and dry. Heart exam shows a regular rhythm. The lungs are clear. Abdominal exam shows that her incisions are healing well with Steri-Strips in place. She has active bowel sounds. The abdomen is soft without any undue tenderness. She has no new labs today. Patient's pathology report was seen several days ago and showed findings consistent only with Crohn's disease with transmural acute and chronic inflammation with stricture. IMPRESSION: Patient is now doing well 4 days postoperative from her resection of her Crohn's disease stricture. PLAN: Patient will be discharged home today. She was counseled that she can take a diet as tolerated. She can take a shower ad masha. She can leave her wounds open to the air or cover them if she desires. I will provide her with a prescription for 10 [place] tablets to take on an as-needed basis for more severe pain and otherwise encouraged her to use Tylenol or ibuprofen for mildly pain. She should call the office for any problems and plan to followup in the office in about 10 days for routine followup. She had an opportunity to ask questions and is agreeable to discharge home.
== END 2020-06-13 13:20 | disposition home or self-care (01) | DRG 331 ==
LOC: M OR 06:17 → M MSPAV 14:17
PROVIDERS: ADMIT Surgery; ATTEND Surgery
PROC: 0DBB4ZZ Excision of Ileum, Percutaneous Endoscopic Approach (ICD-10-PCS; 2020-06-09)
PROC: 8E0W4CZ Robotic Assisted Procedure of Trunk Region, Percutaneous Endoscopic Approach (ICD-10-PCS; 2020-06-09)
PROC: 0DBH4ZZ Excision of Cecum, Percutaneous Endoscopic Approach (ICD-10-PCS; principal; 2020-06-09 07:30)
DX: K50.012 Crohn's disease of small intestine with intestinal obstruction (principal); K21.9 Gastro-esophageal reflux disease without esophagitis; Z88.0 Allergy status to penicillin; Z79.899 Other long term (current) drug therapy

== ENCOUNTER 2020-06-24 14:46 | Outpatient (CLI) | payer OTHER ==
[~2020-06-24] VITALS: Ht 160 cm; Wt 90.4 kg
[~2020-06-24 14:46] MED LIST changes: -AZTREONAM 2 GM in D5W MINI-BAG PLUS 50 ML IV ONE; +HYDR-3715 PO; -LIDOCAINE 1% MDV 20ML VIAL SQ PRN; -LR 1,000 ML IV ONE
[2020-06-24 14:50] VITALS: BP 133/69
[2020-06-24] MEDS ORDERED: VEDOLIZUMAB 300 MG in NS 250 ML IV ONE (15:00)
[2020-06-24 16:37] VITALS: BP 136/77
== END 2020-06-24 16:35 | disposition home or self-care (01) ==
LOC: M INFU 14:46
PROVIDERS: ATTEND Internal Medicine Gastroenterology
DX: K50.90 Crohn's disease, unspecified, without complications (principal); Z88.0 Allergy status to penicillin
CPT/HCPCS: 96365; J3380

== ENCOUNTER 2020-08-19 15:04 | Outpatient (CLI) | payer OTHER ==
[~2020-08-19] VITALS: Ht 160 cm; Wt 81.0 kg
[2020-08-19 15:10] VITALS: BP 141/60
[2020-08-19] MEDS ORDERED: VEDOLIZUMAB 300 MG in NS 250 ML IV ONE (16:00)
[2020-08-19 16:40] VITALS: BP 121/60
== END 2020-08-19 16:40 | disposition home or self-care (01) ==
LOC: M INFU 15:04
PROVIDERS: ATTEND Internal Medicine Gastroenterology
DX: K50.90 Crohn's disease, unspecified, without complications (principal); Z88.0 Allergy status to penicillin
CPT/HCPCS: 96365; J3380

== ENCOUNTER 2020-10-21 12:42 | Outpatient (CLI) | payer OTHER ==
[~2020-10-21] VITALS: Ht 160 cm; Wt 83.0 kg
[~2020-10-21 12:42] MED LIST changes: +OMEP40CA4 PO; -OMEP40CA97 PO; +VEDOLIZUMAB 300 MG in NS 250 ML IV ONE
[2020-10-21 12:55] VITALS: BP 120/63
[2020-10-21 14:23] VITALS: BP 129/61
== END 2020-10-21 14:25 | disposition home or self-care (01) ==
LOC: M INFU 12:42
PROVIDERS: ATTEND Internal Medicine Gastroenterology
DX: K50.90 Crohn's disease, unspecified, without complications (principal); Z88.0 Allergy status to penicillin
CPT/HCPCS: 96365; J3380

== ENCOUNTER 2020-12-16 12:42 | Outpatient (CLI) | payer OTHER ==
[~2020-12-16] VITALS: Ht 160 cm; Wt 83.0 kg
[~2020-12-16 12:42] MED LIST changes: -KLOR20TA42 PO; +POTA-141 PO
[2020-12-16 12:55] VITALS: BP 141/73
[2020-12-16 13:59] VITALS: BP 136/60
== END 2020-12-16 14:00 | disposition home or self-care (01) ==
LOC: M INFU 12:42
PROVIDERS: ATTEND Internal Medicine Gastroenterology
DX: K50.90 Crohn's disease, unspecified, without complications (principal); Z88.0 Allergy status to penicillin
CPT/HCPCS: 96365; J3380

== ENCOUNTER 2021-02-15 15:41 | Outpatient (CLI) | payer OTHER ==
[~2021-02-15 15:41] MED LIST changes: -FLUC150T PO; +FLUC150T9 PO; -MAGN400T3 PO; +MAGN400T33 PO; +POTA-151 PO; -POTA20TA6 PO
[2021-02-15 15:56] VITALS: BP 128/75
[2021-02-15] MEDS ORDERED: VEDOLIZUMAB 300 MG in NS 250 ML IV ONE (17:00)
[2021-02-15 17:10] VITALS: BP 119/65
== END 2021-02-15 17:20 | disposition home or self-care (01) ==
LOC: M INFU 15:41
PROVIDERS: ATTEND Internal Medicine Gastroenterology
DX: K50.90 Crohn's disease, unspecified, without complications (principal); Z88.0 Allergy status to penicillin
CPT/HCPCS: 96365; J3380

== ENCOUNTER 2021-05-31 09:10 | Day surgery (SDC) | payer OTHER ==
[~2021-05-31] VITALS: Ht 165.1 cm; Wt 98.4 kg
[~2021-05-31 09:10] MED LIST changes: +LIDOCAINE 2% 100MG/5ML SDV (FOR ANES.) As Ordered ONE; +NS 1,000 ML IV ONE; -VEDOLIZUMAB 300 MG in NS 250 ML IV ONE; +propofoL 200 MG/20 ML VIAL As Ordered ONE
[2021-05-31] MEDS ORDERED: propofoL 200 MG/20 ML VIAL As Ordered ONE (11:55)
[2021-05-31 12:25] VITALS: BP 127/59
== END 2021-05-31 12:27 | disposition home or self-care (01) ==
LOC: M OPP 09:10
PROVIDERS: ATTEND Internal Medicine Gastroenterology
DX: K50.90 Crohn's disease, unspecified, without complications (principal); K92.1 Melena; K52.831 Collagenous colitis; Z90.49 Acquired absence of other specified parts of digestive tract; K64.8 Other hemorrhoids; Z79.899 Other long term (current) drug therapy; Z88.0 Allergy status to penicillin; Z98.0 Intestinal bypass and anastomosis status

== ENCOUNTER → 2021-06-02 | Outpatient (CLI) | payer OTHER ==
[~2021-06-02] MED LIST changes: -LIDOCAINE 2% 100MG/5ML SDV (FOR ANES.) As Ordered ONE; -NS 1,000 ML IV ONE; +VEDOLIZUMAB 300 MG in NS 250 ML IV ONE; -propofoL 200 MG/20 ML VIAL As Ordered ONE
== END ==
LOC: M INFU 13:54
PROVIDERS: ATTEND Internal Medicine Gastroenterology
DX: Z53.9 Procedure and treatment not carried out, unspecified reason (principal)

== ENCOUNTER 2021-06-04 13:56 | Outpatient (CLI) | payer OTHER ==
[~2021-06-04] VITALS: Ht 160 cm; Wt 83.0 kg
[2021-06-04 14:15] VITALS: BP 148/76
[2021-06-04 15:10] VITALS: BP 137/69
== END 2021-06-04 15:20 | disposition home or self-care (01) ==
LOC: M INFU 13:56
PROVIDERS: ATTEND Internal Medicine Gastroenterology
DX: K50.90 Crohn's disease, unspecified, without complications (principal); Z88.0 Allergy status to penicillin
CPT/HCPCS: 96365; J3380

== ENCOUNTER 2021-07-30 16:09 | Outpatient (CLI) | payer OTHER ==
[~2021-07-30] VITALS: Ht 160 cm; Wt 83.0 kg
[2021-07-30 16:15] VITALS: BP 163/77
[2021-07-30 17:07] VITALS: BP 126/74
== END 2021-07-30 17:10 | disposition home or self-care (01) ==
LOC: M INFU 16:09
PROVIDERS: ATTEND Internal Medicine Gastroenterology
DX: K50.90 Crohn's disease, unspecified, without complications (principal); Z88.0 Allergy status to penicillin
CPT/HCPCS: 96365; J3380

== ENCOUNTER 2021-10-06 15:45 | Outpatient (CLI) | payer OTHER ==
[~2021-10-06] VITALS: Ht 160 cm; Wt 83.0 kg
[2021-10-06 15:45] VITALS: BP 146/69
[~2021-10-06 15:45] MED LIST changes: -VEDOLIZUMAB 300 MG in NS 250 ML IV ONE
[2021-10-06] MEDS ORDERED: VEDOLIZUMAB 300 MG in NS 250 ML IV ONE (16:00)
== END 2021-10-06 17:00 | disposition home or self-care (01) ==
LOC: M INFU 15:45
PROVIDERS: ATTEND Internal Medicine Gastroenterology
DX: K50.90 Crohn's disease, unspecified, without complications (principal); Z88.0 Allergy status to penicillin
CPT/HCPCS: 96365; J3380

== ENCOUNTER 2021-12-01 16:35 | Outpatient (CLI) | payer OTHER ==
[~2021-12-01] VITALS: Ht 165.1 cm; Wt 102.0 kg
[2021-12-01 16:35] VITALS: BP 130/70
[~2021-12-01 16:35] MED LIST changes: +VEDOLIZUMAB 300 MG in NS 250 ML IV ONE
[2021-12-01 17:42] VITALS: BP 137/98
== END 2021-12-01 17:43 | disposition home or self-care (01) ==
LOC: M INFU 16:35
PROVIDERS: ATTEND Internal Medicine Gastroenterology
DX: K50.90 Crohn's disease, unspecified, without complications (principal); Z88.0 Allergy status to penicillin
CPT/HCPCS: 96365; J3380

== ENCOUNTER 2022-01-26 13:30 | Outpatient (CLI) | payer OTHER ==
[2022-01-26 14:07] VITALS: BP 145/95
[2022-01-26 15:00] VITALS: BP 145/82
== END 2022-01-26 15:00 | disposition home or self-care (01) ==
LOC: M INFU 13:30
PROVIDERS: ATTEND Internal Medicine Gastroenterology
DX: K50.90 Crohn's disease, unspecified, without complications (principal); Z88.0 Allergy status to penicillin
CPT/HCPCS: 96365; J3380

== ENCOUNTER 2022-03-28 15:27 | Outpatient (CLI) | payer OTHER ==
[~2022-03-28] VITALS: Ht 157.5 cm; Wt 102.0 kg
[2022-03-28] MEDS ORDERED: VEDOLIZUMAB 300 MG in NS 250 ML IV ONE (15:30)
[2022-03-28 15:35] VITALS: BP 145/81
[2022-03-28 16:35] VITALS: BP 142/66
== END 2022-03-28 16:35 | disposition home or self-care (01) ==
LOC: M INFU 15:27
PROVIDERS: ATTEND Internal Medicine Gastroenterology
DX: K50.90 Crohn's disease, unspecified, without complications (principal); Z88.0 Allergy status to penicillin
CPT/HCPCS: 96365; J3380

== ENCOUNTER 2022-05-23 15:30 | Outpatient (CLI) | payer OTHER ==
[2022-05-23 15:36] VITALS: BP 158/89
== END 2022-05-23 16:45 ==
LOC: M INFU 15:30
PROVIDERS: ATTEND Internal Medicine Gastroenterology
DX: K50.90 Crohn's disease, unspecified, without complications (principal); Z88.0 Allergy status to penicillin
CPT/HCPCS: 96365; J3380

== ENCOUNTER 2022-07-18 13:06 | Outpatient (CLI) | payer OTHER ==
[~2022-07-18] VITALS: Ht 157.5 cm; Wt 102.0 kg
[2022-07-18 13:15] VITALS: BP 142/86
[2022-07-18 14:30] VITALS: BP 139/75
== END 2022-07-18 14:30 ==
LOC: M INFU 13:06
PROVIDERS: ATTEND Internal Medicine Gastroenterology
DX: K50.90 Crohn's disease, unspecified, without complications (principal); Z88.0 Allergy status to penicillin
CPT/HCPCS: 96365; J3380

== ENCOUNTER 2022-09-12 12:55 | Outpatient (CLI) | payer OTHER ==
[~2022-09-12] VITALS: Ht 157.5 cm; Wt 102.0 kg
[~2022-09-12 12:55] MED LIST changes: -VEDOLIZUMAB 300 MG in NS 250 ML IV ONE
[2022-09-12] MEDS ORDERED: VEDOLIZUMAB 300 MG in NS 250 ML IV ONE (13:00)
[2022-09-12 13:27] VITALS: BP 140/84; O2SAT 95
[2022-09-12 14:38] VITALS: BP 119/76; O2SAT 98
== END 2022-09-12 14:40 ==
LOC: M INFU 12:55
PROVIDERS: ATTEND Internal Medicine Gastroenterology
DX: K50.90 Crohn's disease, unspecified, without complications (principal); Z88.0 Allergy status to penicillin
CPT/HCPCS: 96365; J3380

== ENCOUNTER 2022-11-07 13:15 | Outpatient (CLI) | payer OTHER ==
[~2022-11-07] VITALS: Ht 157.5 cm; Wt 102.0 kg
[2022-11-07 13:15] VITALS: BP 140/68; O2SAT 97
[~2022-11-07 13:15] MED LIST changes: +VEDOLIZUMAB 300 MG in NS 250 ML IV ONE
[2022-11-07 15:00] VITALS: BP 138/66; O2SAT 99
== END 2022-11-07 15:00 | disposition home or self-care (01) ==
LOC: M INFU 13:15
PROVIDERS: ATTEND Internal Medicine Gastroenterology
DX: K50.00 Crohn's disease of small intestine without complications (principal); Z88.0 Allergy status to penicillin
CPT/HCPCS: 96365; J3380

== ENCOUNTER 2023-01-02 16:35 | Outpatient (CLI) | payer OTHER ==
[~2023-01-02] VITALS: Ht 157.5 cm; Wt 103.0 kg
[2023-01-02 16:35] VITALS: BP 138/76; O2SAT 97
[~2023-01-02 16:35] MED LIST changes: -VEDOLIZUMAB 300 MG in NS 250 ML IV ONE
[2023-01-02] MEDS ORDERED: VEDOLIZUMAB 300 MG in NS 250 ML IV ONE (17:30)
[2023-01-02 17:49] VITALS: BP 138/72; O2SAT 98
== END 2023-01-02 17:50 ==
LOC: M INFU 16:35
PROVIDERS: ATTEND Internal Medicine Gastroenterology
DX: K50.90 Crohn's disease, unspecified, without complications (principal); Z88.0 Allergy status to penicillin
CPT/HCPCS: 96365; J3380

== ENCOUNTER → 2023-04-24 | Outpatient (CLI) | payer OTHER | LOC: M INFU 13:05 | PROVIDERS: ATTEND Internal Medicine Gastroenterology | DX: Z53.8 Procedure and treatment not carried out for other reasons (principal); K50.90 Crohn's disease, unspecified, without complications; Z88.0 Allergy status to penicillin ==

== ENCOUNTER 2023-08-03 12:39 | Outpatient (CLI) | payer OTHER ==
[~2023-08-03] VITALS: Ht 165.1 cm; Wt 109.1 kg
[2023-08-03 13:00] VITALS: BP 136/73; O2SAT 100
[2023-08-03] MEDS: VEDOLIZUMAB 300 MG in NS 250 ML IV ONE (14:11)
[2023-08-03 14:55] VITALS: BP 149/82; O2SAT 100
== END 2023-08-03 14:55 | disposition home or self-care (01) ==
LOC: M INFU 12:39
PROVIDERS: ATTEND Internal Medicine Gastroenterology
DX: K50.919 Crohn's disease, unspecified, with unspecified complications (principal); Z88.0 Allergy status to penicillin
CPT/HCPCS: 96365; J3380

== ENCOUNTER 2023-10-02 13:04 | Outpatient (CLI) | payer OTHER ==
[~2023-10-02 13:04] MED LIST changes: +VEDOLIZUMAB 300 MG in NS 250 ML IV ONE
[2023-10-02 13:30] VITALS: BP 160/85; O2SAT 96
[2023-10-02] MEDS: VEDOLIZUMAB 300 MG in NS 250 ML IV ONE (14:15)
[2023-10-02 15:00] VITALS: BP 161/76; O2SAT 97
== END 2023-10-02 15:00 ==
LOC: M INFU 13:04
PROVIDERS: ATTEND Internal Medicine Gastroenterology
DX: K50.90 Crohn's disease, unspecified, without complications (principal); Z88.0 Allergy status to penicillin
CPT/HCPCS: 96365; J3380

== ENCOUNTER 2023-11-24 16:27 | Outpatient (CLI) | payer OTHER ==
[~2023-11-24] VITALS: Ht 165.1 cm; Wt 116.2 kg
[~2023-11-24 16:27] MED LIST changes: +ALBUTEROL SULFATE 2.5MG/0.5ML INH NEB SOLN INH PRN; +EPINEPHrine INJ 1 MG/ML 1ML AMP IM PRN; +NS 1,000 ML IV SCH; -VEDOLIZUMAB 300 MG in NS 250 ML IV ONE; +diphenhydrAMINE 50MG/ML VIAL IV PRN; +methylPREDNISolone 125MG 2ML VIAL IV PRN
[2023-11-24 16:45] VITALS: BP 146/71; O2SAT 97
[2023-11-24] MEDS: ACETAMINOPHEN TAB 650MG DOSE (2X325MG) PO ONE (17:01)
[2023-11-24] MEDS: VEDOLIZUMAB 300 MG in NS 250 ML IV ONE (17:01)
[2023-11-24 17:33] VITALS: BP 134/81; O2SAT 98
== END 2023-11-24 17:40 | disposition home or self-care (01) ==
LOC: M INFU 16:27
PROVIDERS: ATTEND Nurse Practitioner Family
DX: K50.90 Crohn's disease, unspecified, without complications (principal); Z88.0 Allergy status to penicillin
CPT/HCPCS: 96413; J3380

== ENCOUNTER 2024-01-25 14:35 | Outpatient (CLI) | payer OTHER ==
[~2024-01-25] VITALS: Ht 166.4 cm; Wt 107.3 kg
[~2024-01-25 14:35] MED LIST changes: +ACETAMINOPHEN 650 MG PO ONE
[2024-01-25 14:56] VITALS: BP 146/83; O2SAT 95
[2024-01-25] MEDS: VEDOLIZUMAB 300 MG in NS 250 ML IV ONE (15:16)
[2024-01-25 15:55] VITALS: BP 152/86; O2SAT 99
== END 2024-01-25 15:56 ==
LOC: M INFU 14:35
PROVIDERS: ATTEND Nurse Practitioner Family
DX: K50.90 Crohn's disease, unspecified, without complications (principal); Z88.0 Allergy status to penicillin
CPT/HCPCS: 96365; J3380

== ENCOUNTER 2024-03-21 15:54 | Outpatient (CLI) | payer OTHER ==
[~2024-03-21] VITALS: Ht 165.1 cm; Wt 107.3 kg
[~2024-03-21 15:54] MED LIST changes: -ALBUTEROL SULFATE 2.5MG/0.5ML INH NEB SOLN INH PRN; -EPINEPHrine INJ 1 MG/ML 1ML AMP IM PRN; -NS 1,000 ML IV SCH; -diphenhydrAMINE 50MG/ML VIAL IV PRN; -methylPREDNISolone 125MG 2ML VIAL IV PRN
[2024-03-21 16:05] VITALS: BP 171/78; O2SAT 98
[2024-03-21] MEDS: VEDOLIZUMAB 300 MG in NS 250 ML IV ONE (17:11)
[2024-03-21 17:46] VITALS: BP 173/92; O2SAT 97
== END 2024-03-21 17:50 | disposition home or self-care (01) ==
LOC: M INFU 15:54
PROVIDERS: ATTEND Nurse Practitioner Family
DX: K50.90 Crohn's disease, unspecified, without complications (principal); Z88.0 Allergy status to penicillin
CPT/HCPCS: 96413; J3380

== ENCOUNTER 2024-05-16 12:46 | Outpatient (CLI) | payer OTHER ==
[~2024-05-16] VITALS: Ht 165.1 cm; Wt 107.0 kg
[~2024-05-16 12:46] MED LIST changes: -ACETAMINOPHEN 650 MG PO ONE; +ALBUTEROL SULFATE 2.5MG/0.5ML INH NEB SOLN INH PRN; +EPINEPHrine INJ 1 MG/ML 1ML AMP IM PRN; +diphenhydrAMINE 50MG/ML VIAL IV PRN; +methylPREDNISolone 125MG 2ML VIAL IV PRN
[2024-05-16 13:00] VITALS: BP 131/63; O2SAT 97
[2024-05-16] MEDS ORDERED: ACETAMINOPHEN 650 MG PO ONE (13:00)
[2024-05-16] MEDS: VEDOLIZUMAB 300 MG in NS 250 ML IV ONE (13:26)
[2024-05-16 14:10] VITALS: BP 138/79; O2SAT 100
== END 2024-05-16 14:10 ==
LOC: M INFU 12:46
PROVIDERS: ATTEND Nurse Practitioner Family
DX: K50.919 Crohn's disease, unspecified, with unspecified complications (principal); Z88.0 Allergy status to penicillin
CPT/HCPCS: 96413; J3380

== ENCOUNTER 2024-10-07 11:36 | Outpatient (CLI) | payer OTHER ==
[~2024-10-07] VITALS: Ht 165.1 cm; Wt 107.3 kg
[~2024-10-07 11:36] MED LIST changes: +ALBUTEROL SULFATE 2.5 MG/0.5 ML INH CONCENTRATE NEB SOLN INH PRN; -ALBUTEROL SULFATE 2.5MG/0.5ML INH NEB SOLN INH PRN; +diphenhydrAMINE 50 MG/ML VIAL IV PRN; -diphenhydrAMINE 50MG/ML VIAL IV PRN; -methylPREDNISolone 125MG 2ML VIAL IV PRN
[2024-10-07 11:55] VITALS: BP 133/61; O2SAT 98
[2024-10-07] MEDS ORDERED: NS (Normal Saline) 0.9% 1,000 ML IV SCH (12:00)
[2024-10-07] MEDS ORDERED: ACETAMINOPHEN 650 MG PO ONE (12:00)
[2024-10-07] MEDS: VEDOLIZUMAB 300 MG in NS 250 ML IV ONE (13:25)
[2024-10-07 14:10] VITALS: BP 130/88; O2SAT 96
== END 2024-10-07 14:10 | disposition home or self-care (01) ==
LOC: M INFU 11:36
PROVIDERS: ATTEND Nurse Practitioner Family
DX: K50.819 Crohn's disease of both small and large intestine with unspecified complications (principal); Z88.0 Allergy status to penicillin
CPT/HCPCS: 96413; J3380

== ENCOUNTER 2024-12-02 16:08 | Outpatient (CLI) | payer OTHER ==
[~2024-12-02] VITALS: Ht 165.1 cm; Wt 107.0 kg
[~2024-12-02 16:08] MED LIST changes: +NS (Normal Saline) 0.9% 1,000 ML IV SCH
[2024-12-02 16:18] VITALS: BP 134/68; O2SAT 97
[2024-12-02] MEDS: ACETAMINOPHEN 650 MG PO ONE (16:33)
[2024-12-02] MEDS: VEDOLIZUMAB 300 MG in NS 250 ML IV ONE (16:33)
[2024-12-02 17:10] VITALS: BP 126/72; O2SAT 99
== END 2024-12-02 17:10 ==
LOC: M INFU 16:08
PROVIDERS: ATTEND Nurse Practitioner Family
DX: K50.819 Crohn's disease of both small and large intestine with unspecified complications (principal); K52.831 Collagenous colitis; K21.9 Gastro-esophageal reflux disease without esophagitis; R74.01 Elevation of levels of liver transaminase levels; Z88.0 Allergy status to penicillin
CPT/HCPCS: 96365; J3380

== ENCOUNTER 2025-03-10 15:30 | Outpatient (CLI) | payer OTHER ==
[~2025-03-10] VITALS: Ht 165.1 cm; Wt 107.3 kg
[2025-03-10 14:15] VITALS: BP 128/75; O2SAT 96
[~2025-03-10 15:30] MED LIST changes: -NS (Normal Saline) 0.9% 1,000 ML IV SCH
[2025-03-10] MEDS: ACETAMINOPHEN 650 MG PO ONE (16:07)
[2025-03-10] MEDS: VEDOLIZUMAB 300 MG in NS 250 ML IV ONE (16:24)
[2025-03-10 17:00] VITALS: BP 119/82; O2SAT 97
== END 2025-03-10 17:00 | disposition home or self-care (01) ==
LOC: M INFU 15:30
PROVIDERS: ATTEND Internal Medicine
DX: K50.90 Crohn's disease, unspecified, without complications (principal); Z88.0 Allergy status to penicillin
CPT/HCPCS: 96413; J3380